=== PATIENT | male | born 1980 | race Caucasian/White ===

== ENCOUNTER → 2016-11-21 | Outpatient (CLI) | payer OTHER ==
--- NOTE | 2016-11-21 14:48 | XR ---
AP pelvis HISTORY: Pelvic pain Single frontal view of the pelvis correlated to prior exam 27 August 2016 There is no interval change IMPRESSION: Stable postoperative changes.
== END | disposition home or self-care (01) ==
LOC: RADXRMAIN 12:18
PROVIDERS: ATTEND Neurological Surgery
DX: R10.2 Pelvic and perineal pain (principal); Z98.890 Other specified postprocedural states
CPT/HCPCS: 72170

== ENCOUNTER → 2016-12-11 | Outpatient (CLI) | payer OTHER ==
--- NOTE | 2016-12-11 15:06 | XR ---
Lumbar spine flexion and extension views HISTORY: Status post lumbar fusion. Correlation to previous exam 01 Mar 2015 Patient shows posterior lumbar fusion at L4-5 S1. Intervertebral spacing material is present. Alignme nt is stable. 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 Minimal retrolisthes is suspected at L3-4, alignment is stable as compared to prior exam. Triangular metallic devices pres ent along the anterior aspect of the sacrum on the lateral view not seen on previous exam. IMPRESSION: Minimal slip is suspected at L3-4. Degenerative disc disease and postop change.
== END | disposition home or self-care (01) ==
LOC: RADXRMAIN 14:18
PROVIDERS: ATTEND Neurological Surgery
DX: M51.36 Other intervertebral disc degeneration, lumbar region (principal); Z98.890 Other specified postprocedural states
CPT/HCPCS: 72100

== ENCOUNTER → 2017-01-13 | Outpatient (CLI) | payer OTHER ==
--- NOTE | 2017-01-13 21:45 | MR ---
EXAMINATION TYPE: MR lumbar spine wo con DATE OF EXAM: 01/13/2017 9:36 PM COMPARISON: MRI lumbar spine August 16, 2016. Lumbar spine x-ray December 11, 2016. HISTORY: Deg Of Lumbar per order, prior surgery 2010 and 2015 with pain since 2008 per patient. TECHNIQUE: Multiplanar, multisequence imaging of the lumbar spine is performed without IV contrast. FINDINGS: Sagittal images of the lumbar spine show vertebral body heights to appear satisfactory. The re is prominent lumbar lordosis centered at L3-L4 disc space level redemonstrated. Artifact from post erior fusion hardware L4-S1 levels bilaterally is redemonstrated. There is new artifact from anterior fusion hardware in the upper sacrum now noted. There is artifact from disc material L4-L5 and L5-S1 levels redemonstrated. There is disc desiccation with moderate disc space narrowing posteriorly L3-L4 level redemonstrated . The conus medullaris is normal in position and signal ending at T12-L1 disc s pace level. The bone marrow signal intensity is within normal limits. Axial images redemonstrates the T12-L1, L1-L2, and L2-L3 levels all to remain within normal limits. Axial images at L3-L4 level show artifact from posterior fusion hardware. There is mild to moderate b road-based posterior disc protrusion mildly effacing anterior thecal sac with mild to moderate bilate ral anterior inferior neural foraminal narrowing redemonstrated. No significant change from prior will dy is seen. Axial images at L4-L5 and L5-S1 levels show artifact from posterior fusion hardware and disc material . There are bilateral laminectomy defect with spinous process resection. Spinal canal is preserved an d bilateral neural foramina are patent. No significant change from prior study is seen. IMPRESSION: Postsurgical changes L4-S1 level with satisfactory and stable alignment. No significant i nterval change. There is stable degenerative change at L3-L4 level at the peak of curvature noted.
== END ==
LOC: RADMRIMAIN 20:34
PROVIDERS: ATTEND Neurological Surgery
DX: M51.36 Other intervertebral disc degeneration, lumbar region (principal)
CPT/HCPCS: 72148

== ENCOUNTER → 2017-01-13 | Outpatient (CLI) | payer OTHER ==
--- NOTE | 2017-01-13 22:29 | MR ---
EXAMINATION TYPE: MR hip RT wo con DATE OF EXAM: 01/13/2017 9:51 PM COMPARISON: Prior pelvic x-ray November 21, 2016. HISTORY: PAIN IN RT HIP Standard multiplanar, multisequence MRI departmental protocol Multiplanar, multisequence images of the pelvis focusing on right hip were acquired. FINDINGS: Bone marrow signal intensity in the pelvis including right hip is felt within normal limits . Pubic symphysis is maintained. Sacroiliac joints show artifact from fusion material on the right. E valuation at this level is suboptimal due to artifact. There are small symmetric hip joint effusions. No significant spurring is seen. No suspicious asymmet martina joint space loss is noted. No suspicious fluid signal seen at level of greater or lesser trochanters on the right. Femoral head shape is maintained. Muscle bulk in the right thigh is felt within normal limits and symmetric to opp osite left side. Labrum appears grossly intact given limitation of nonarthrogram study. Visualized bowel shows no suspicious dilatation. Bladder is felt within normal limits. Prostate gland and seminal vesicles are grossly unremarkable. No concerning pelvic fluid collection is seen. No durga picious pelvic adenopathy is noted. No suspicious bowel or fat-containing inguinal hernias are seen. IMPRESSION: No suspicious finding is seen to account for patient's symptoms of right-sided hip pain.
== END ==
LOC: RADMRIMAIN 20:26
PROVIDERS: ATTEND Internal Medicine
DX: M25.551 Pain in right hip (principal)

== ENCOUNTER → 2017-03-10 | Outpatient (CLI) | payer OTHER ==
[2017-03-10 13:10] LABS: Basophils # (A) 0.1 k/uL (0-0.2); Basophils % (A) 1 %; CH 31.4; CHCM 33.1; Eosinophils # (A) 0.1 k/uL (0-0.7); Eosinophils % (A) 1 %; HCT 41.2 % (39.0-53.0); HDW 2.19; HGB 13.3 gm/dL (13.0-17.5); Luc # (Auto) 0.16; Luc % (Auto) 2; Lymphocytes # (A) 2.1 k/uL (1.0-4.8); Lymphocytes % (A) 28 %; MCH 30.7 pg (25.0-35.0); MCHC 32.2 g/dL (31.0-37.0); MCV 95.3 fL (80.0-100.0); Mean Platelet Volume 6.4; Monocytes # (A) 0.4 k/uL (0-1.0); Monocytes % (A) 5 %; Neutrophils # (A) 4.6 k/uL (1.3-7.7); Neutrophils % (A) 63 %; RBC 4.33 m/uL (4.30-5.90); RDW 13.3 % (11.5-15.5); WBC 7.3 k/uL (3.8-10.6); WBC (Perox) 7.54
[2017-03-10 13:12] LABS: INR 1.1 (<1.1); Partial Thromboplastin Time 25.3 sec (22.0-30.0); Prothrombin Time 11.5 sec (9.0-12.0)
[2017-03-10 13:21] LABS: ALT 30 U/L (21-72); AST 28 U/L (17-59); Alkaline Phosphatase 63 U/L (38-126); Anion Gap 9 mmol/L; Blood Urea Nitrogen 15 mg/dL (9-20); Calcium 9.7 mg/dL (8.4-10.2); Carbon Dioxide 29 mmol/L (22-30); Chloride 102 mmol/L (98-107); Glucose 76 mg/dL (74-99); Non-African American GFR(MDRD) >60 (>60 ml/min/1.73 sqM); Potassium 4.2 mmol/L (3.5-5.1); Sodium 140 mmol/L (137-145); Total Bilirubin 0.5 mg/dL (0.2-1.3); Total Protein 7.3 g/dL (6.3-8.2)
[2017-03-10 16:32] LABS: Appearance,Urine Clear (Clear); Bilirubin,Urine Negative (Negative); Glucose,Urine (UA) Negative (Negative); Ketones,Urine Negative (Negative); Leukocyte Esterase,Urine Negative (Negative); Nitrite,Urine Negative (Negative); PH, Urine 5.5 (5.0-8.0); Protein,Urine Negative (Negative); Specific Gravity,Urine 1.005 (1.001-1.035); UA Billing (MACRO vs. MICRO) CHEM; Urobilinogen,Urine <2.0 mg/dL (<2.0)
== END | disposition home or self-care (01) ==
LOC: LABWHC1 12:44
PROVIDERS: ATTEND Neurological Surgery
DX: M51.36 Other intervertebral disc degeneration, lumbar region (principal)
CPT/HCPCS: 36415; 80053; 81003; 85025; 85610; 85730

== ENCOUNTER → 2017-04-17 | Outpatient (CLI) | payer OTHER ==
--- NOTE | 2017-04-17 10:53 | XR ---
EXAMINATION TYPE: XR sacrum coccyx DATE OF EXAM: 04/17/2017 COMPARISON: NONE HISTORY: Pain Three views are submitted. Sacrum is intact. SI joints are symmetric. Coccyx appears to be intact. Visualized pelvic structures intact. Postsurgical change at the lumbosacral junction noted. Surgic al change involving the sacrum seen. IMPRESSION: 1. Postsurgical change appears in near-anatomic alignment..
--- NOTE | 2017-04-17 10:55 | XR ---
EXAM TYPE: LUMBAR SPINE X RAY SERIES COMPARISON: 12/11/2016 HISTORY: Postop TECHNIQUE: 3 views are submitted. FINDINGS: Alignment is anatomic. Postsurgical change noted. When the transpedicular screws at the lowest lumbar segment and sacral level has been removed. Alignment remains stable. Alignment anatomic. No signific ant spondylolisthesis. IMPRESSION: 1. Postsurgical changes.
== END | disposition home or self-care (01) ==
LOC: RADXRMAIN 10:17
PROVIDERS: ATTEND Neurological Surgery
DX: Z47.89 Encounter for other orthopedic aftercare (principal); Z98.1 Arthrodesis status
CPT/HCPCS: 72100; 72220

== ENCOUNTER → 2017-06-25 | Outpatient (CLI) | payer OTHER ==
--- NOTE | 2017-06-25 12:20 | XR ---
EXAM TYPE: LUMBAR SPINE X RAY SERIES COMPARISON: 04/17/2017 HISTORY: Postop TECHNIQUE: 2 views are submitted. FINDINGS: Alignment is anatomic. Postsurgical change noted. When the transpedicular screws at the lowest lumbar segment and sacral level has been removed. Alignment remains stable. Alignment anatomic. No signific ant spondylolisthesis. IMPRESSION: 1. Postsurgical changes.
== END | disposition home or self-care (01) ==
LOC: RADXRMAIN 11:44
PROVIDERS: ATTEND Neurological Surgery
DX: M51.36 Other intervertebral disc degeneration, lumbar region (principal); Z98.890 Other specified postprocedural states
CPT/HCPCS: 72100

== ENCOUNTER → 2017-07-07 | Outpatient (CLI) | payer OTHER ==
[2017-07-07 12:35] LABS: CH 29.8; CHCM 32.2; HCT 38.6 % (39.0-53.0); HGB 13.3 gm/dL (13.0-17.5); MCHC 34.4 g/dL (31.0-37.0); MCV 93.1 fL (80.0-100.0); Mean Platelet Volume 6.9; RBC 4.14 m/uL (4.30-5.90); RDW 14.7 % (11.5-15.5); WBC 9.4 k/uL (3.8-10.6)
[2017-07-07 12:52] LABS: ALT 33 U/L (21-72); AST 22 U/L (17-59); Alkaline Phosphatase 66 U/L (38-126); Amylase 52 U/L (30-110); Anion Gap 9 mmol/L; Blood Urea Nitrogen 13 mg/dL (9-20); Calcium 9.8 mg/dL (8.4-10.2); Carbon Dioxide 27 mmol/L (22-30); Chloride 105 mmol/L (98-107); Glucose 90 mg/dL (74-99); Non-African American GFR(MDRD) >60 (>60 ml/min/1.73 sqM); Potassium 4.6 mmol/L (3.5-5.1); Sodium 141 mmol/L (137-145); Total Bilirubin 0.2 mg/dL (0.2-1.3); Total Protein 7.1 g/dL (6.3-8.2)
[2017-07-07 13:21] LABS: Hepatitis B Surface Ag Index 0.05
--- NOTE | 2017-07-07 13:21 | US ---
EXAMINATION TYPE: US abdomen complete DATE OF EXAM: 07/07/2017 COMPARISON: NONE CLINICAL HISTORY: R10.11 RUQ PAIN. Right lateral abdomen pain, multiple back surgeries,35 lb weight l oss in past 4 months EXAM MEASUREMENTS: Liver Length: 16.0 cm Gallbladder Wall: 0.2 cm CBD: 0.3 cm Spleen: 9.7 cm Right Kidney: 10.7 x 5.4 x 4.1 cm Left Kidney: 10.8 x 5.1 x 5.5 cm Pancreas: Obscured by bowel gas Liver: no masses seen Gallbladder: wnl Evidence for sonographic Zuniga's sign: patient c/o right lateral abdomen pain at level of liver/r t. kidney. Negative sonographic Zuniga sign. CBD: wnl Spleen: wnl Right Kidney: wnl Left Kidney: wnl Upper IVC: wnl Abd Aorta: wnl IMPRESSION: No sonographic evidence of cholelithiasis or cholecystitis.
[2017-07-07 13:28] LABS: Hepatitis B Core IgM Index 0.03
[2017-07-07 13:38] LABS: Hepatitis C Virus IgG Ab Negative (Negative); Hepatitis C Virus IgG Index 0.01
== END | disposition home or self-care (01) ==
LOC: LABWHC1 11:08
PROVIDERS: ATTEND Internal Medicine
DX: R10.11 Right upper quadrant pain (principal)
CPT/HCPCS: 36415; 76700; 80053; 80074; 82150; 84439; 84443; 85027

== ENCOUNTER → 2017-09-09 | Outpatient (CLI) | payer OTHER ==
[2017-09-09 11:21] LABS: CH 30.8; CHCM 32.5; HDW 2.19; MCH 30.2 pg (25.0-35.0); MCHC 31.6 g/dL (31.0-37.0); MCV 95.4 fL (80.0-100.0); Mean Platelet Volume 6.5; RDW 13.8 % (11.5-15.5); WBC 8.3 k/uL (3.8-10.6)
[2017-09-09 11:29] LABS: Anion Gap 10 mmol/L; Blood Urea Nitrogen 16 mg/dL (9-20); Calcium 10.1 mg/dL (8.4-10.2); Carbon Dioxide 27 mmol/L (22-30); Chloride 105 mmol/L (98-107); Glucose 94 mg/dL (74-99); Non-African American GFR(MDRD) >60 (>60 ml/min/1.73 sqM); Potassium 4.3 mmol/L (3.5-5.1); Sodium 142 mmol/L (137-145)
[2017-09-09 15:18] LABS: Iron Saturation 32.66 (15.00-50.00)
== END | disposition home or self-care (01) ==
LOC: LABWHC1 10:57
PROVIDERS: ATTEND Physician Assistant
DX: D50.9 Iron deficiency anemia, unspecified (principal); G89.4 Chronic pain syndrome
CPT/HCPCS: 36415; 80048; 82607; 82728; 82746; 83540; 83550; 85027

== ENCOUNTER → 2017-11-21 | Outpatient (CLI) | payer OTHER ==
--- NOTE | 2017-11-21 23:15 | MR ---
EXAMINATION TYPE: MR thoracic spine wo con DATE OF EXAM: 11/21/2017 COMPARISON: NONE HISTORY: Postlaminectomy syndrome per order, imaging needed before implanting neurostimulator per sweta gaines. History of multiple surgeries low back per patient. TECHNIQUE: Multiplanar, multisequence imaging of thoracic spine is performed without contrast FINDINGS: Coronal images show slight levoconvex scoliotic curvature centered in the upper thoracic sp ine. Spinal cord shows normal course, caliber, and signal as it courses the thoracic spine. Vertebr al body heights are satisfactory. Disc space heights are maintained. There are small posterior disc herniations mildly effaces the anterior thecal sac at T6-T7 and to lesser degree T7-T8 levels on sagi ttal images. Bone marrow signal intensity is preserved. No significant spurring is seen. Review of the axial images confirms right paracentral disc protrusion effacing anterolateral thecal s ac up to ventral surface of spinal cord at T6 -T7 level on axial image 3 series 801. No additional gutierrez spicious disc herniations are identified. Visualized lungs are clear. Visualized upper abdomen is unr emarkable. IMPRESSION: Slight scoliotic curvature upper thoracic spine with disc herniation T6-T7 level and smal ler disc herniation T7-T8 level noted.
== END | disposition home or self-care (01) ==
LOC: RADMRIMAIN 19:12
PROVIDERS: ATTEND Anesthesiology
DX: M51.24 Other intervertebral disc displacement, thoracic region (principal); M41.84 Other forms of scoliosis, thoracic region
CPT/HCPCS: 72146

== ENCOUNTER → 2017-12-08 | Outpatient (CLI) | payer OTHER ==
[2017-12-08 11:51] LABS: Appearance,Urine Clear (Clear); Bilirubin,Urine Negative (Negative); Blood,Urine Negative (Negative); Color,Urine Yellow; Glucose,Urine (UA) Negative (Negative); Ketones,Urine Negative (Negative); Leukocyte Esterase,Urine Negative (Negative); Nitrite,Urine Negative (Negative); PH, Urine 6.5 (5.0-8.0); Protein,Urine Negative (Negative); Specific Gravity,Urine 1.006 (1.001-1.035); Urobilinogen,Urine <2.0 mg/dL (<2.0)
[2017-12-08 12:01] LABS: Basophils % (A) 0 %; Eosinophils % (A) 0 %; HCT 42.3 % (39.0-53.0); HGB 13.7 gm/dL (13.0-17.5); Lymphocytes # (A) 1.9 k/uL (1.0-4.8); Lymphocytes % (A) 19 %; MCH 30.2 pg (25.0-35.0); MCHC 32.4 g/dL (31.0-37.0); MCV 93.3 fL (80.0-100.0); Mean Platelet Volume 6.6; Monocytes # (A) 0.5 k/uL (0-1.0); Monocytes % (A) 5 %; Neutrophils # (A) 7.4 k/uL (1.3-7.7); Neutrophils % (A) 74 %; Platelet Count 376 k/uL (150-450); RBC 4.53 m/uL (4.30-5.90); WBC 9.9 k/uL (3.8-10.6)
[2017-12-08 12:05] LABS: ALT 29 U/L (21-72); AST 26 U/L (17-59); Albumin 4.6 g/dL (3.5-5.0); Alkaline Phosphatase 61 U/L (38-126); Anion Gap 9 mmol/L; Blood Urea Nitrogen 13 mg/dL (9-20); Carbon Dioxide 33 mmol/L (22-30); Chloride 100 mmol/L (98-107); Glucose 119 mg/dL (74-99); Potassium 4.5 mmol/L (3.5-5.1); Sodium 142 mmol/L (137-145); Total Bilirubin 0.2 mg/dL (0.2-1.3)
[2017-12-08 12:06] LABS: INR 1.1 (<1.2); Partial Thromboplastin Time 23.7 sec (22.0-30.0); Prothrombin Time 10.6 sec (9.0-12.0)
== END | disposition home or self-care (01) ==
LOC: LABWHC1 11:20
PROVIDERS: ATTEND Neurological Surgery
DX: Z01.818 Encounter for other preprocedural examination (principal); M96.1 Postlaminectomy syndrome, not elsewhere classified
CPT/HCPCS: 36415; 80053; 81003; 85025; 85610; 85730

== ENCOUNTER → 2018-03-21 | Outpatient (CLI) | payer OTHER ==
--- NOTE | 2018-03-21 21:47 | CT ---
EXAMINATION TYPE: CT lumbar spine wo con DATE OF EXAM: 03/21/2018 9:52 AM COMPARISON: 05/26/2016 CT bar spine and MRI lumbar spine dated 08/19/2017 HISTORY: Low back pain with Left leg pain CT DLP: 1102 mGycm Automated exposure control for dose reduction was used. TECHNIQUE: Unenhanced CT of the lumbar spine was performed. Bone and soft tissue window settings are submitted as well as coronal and sagittal reconstructions. FINDINGS: There is surgical fixation with pedicular screws and fixation rods of the L3 and L4 vertebr al bodies with intervertebral disc cages seen at L3-L4, L4-L5 and L5-S1. Posterior element resection is seen at L4 and L5. The lumbar vertebral bodies maintain normal vertebral body height and alignment . Hardware is intact without evidence of fracture. Right sacroiliac joint fixation is also seen with intrathecal nerve stimulator partially visualized. Surgical clips are seen around the cecum likely fr om prior appendectomy. Minimal calcific atheromatous changes are seen of the abdominal aorta. L1-L2: Normal disc space height. No disc herniation protrusion or central stenosis. No facet joint arthropathy. No evidence for foraminal encroachment. L2-L3: There is a small broad-based disc bulge creating mild bilateral neural foraminal narrowing. No spinal canal stenosis. L3-L4: Intervertebral disc age is evident as well as facet arthropathy. There appears to be slight so ft tissue density that is right eccentric within the neural foramen on series 3 image 56 and on sagit zohra series 6 image 30. This could relate to epidural fibrosis and enhanced MRI is recommended. Right neuroforamen is partially obscured by spray artifact. There is mild left neural foraminal narrowing f rom facet arthropathy. No significant spinal canal stenosis. L4-L5: Posterior element resection has been performed. No spinal canal stenosis. Small residual broad -based disc bulge is seen in combination with intervertebral disc spacer creating mild bilateral neur al foraminal narrowing. L5-S1: Intervertebral disc age is also again seen. Posterior element resection is noted with no spina l canal stenosis. Facet arthropathy is present creating mild right neural foraminal narrowing. Left n euroforamen is patent. IMPRESSION: 1. Eccentric soft tissue density along the right neural foramen at L3-L4 could represent epidural fib rosis and MRI with and without contrast is recommended for further evaluation. 2. No evidence of postoperative malalignment of the lumbar spine. No evidence of hardware fracture. M ild degenerative disc disease at L2-L3, a level above the surgical fixation. Mild degenerative disc d isease with variable neural foraminal narrowing as described above.
== END | disposition home or self-care (01) ==
LOC: RADCTMAIN 09:38
PROVIDERS: ATTEND Neurological Surgery
DX: Z47.89 Encounter for other orthopedic aftercare (principal); M99.73 Connective tissue and disc stenosis of intervertebral foramina of lumbar region; M51.36 Other intervertebral disc degeneration, lumbar region; R93.7 Abnormal findings on diagnostic imaging of other parts of musculoskeletal system; Z98.890 Other specified postprocedural states
CPT/HCPCS: 72131

== ENCOUNTER → 2018-05-06 | Outpatient (CLI) | payer OTHER ==
--- NOTE | 2018-05-06 10:17 | XR ---
Lumbar spine HISTORY: Postop, Z98.890 3 views of the lumbar spine correlated to prior exam 06/25/2017 There is been interval placement of a device over the sacral region with leads coursing into the thor acic cord region. Postop changes are stable status post lumbar posterior fusion, laminectomies, inter vertebral spacing blocks placements. Postop changes also noted at the sacroiliac joint on the right. There are degenerative disc changes. Vertebral body height and alignment are stable, bone mineralizat ion is maintained. IMPRESSION: Neurosurgical follow-up. Additional findings above.
== END | disposition home or self-care (01) ==
LOC: RADXRMAIN 08:04
PROVIDERS: ATTEND Neurological Surgery
DX: Z09 Encounter for follow-up examination after completed treatment for conditions other than malignant neoplasm (principal); Z98.890 Other specified postprocedural states
CPT/HCPCS: 72100

== ENCOUNTER → 2018-05-07 | Outpatient (CLI) | payer OTHER ==
--- NOTE | 2018-05-08 10:12 | XR ---
Thoracic spine HISTORY: Back pain 3 views of the thoracic spine Correlation MR thoracic spine 11/21/2017 There is a thoracic cord stimulator present with the distal tip at the level of the T8-T9 disc space level. Thoracic vertebral bodies show preserved height, alignment, and bone mineralization. Mild spon dylosis is present at multiple levels. Mild loss of disc height at the intervertebral levels in the m id thoracic spine level. IMPRESSION: Degenerative disc disease. Indwelling thoracic cord stimulator.
== END | disposition home or self-care (01) ==
LOC: RAD 18:01
PROVIDERS: ATTEND Neurological Surgery
DX: M51.34 Other intervertebral disc degeneration, thoracic region (principal); Z96.89 Presence of other specified functional implants
CPT/HCPCS: 72070

== ENCOUNTER → 2018-06-26 | Outpatient (CLI) | payer OTHER ==
--- NOTE | 2018-06-27 13:55 | NM ---
EXAMINATION TYPE: NM DatScan Brain SPECT DATE OF EXAM: 06/26/2018 COMPARISON: NONE HISTORY: 37-year-old male with tremor TECHNIQUE: 10 drops of Lugol's solution was administered 1 hour prior to injection as a thyroid bloc kelly agent. After the administration of 4.48 mCi I-123 Ioflupane DaTscan. Images obtained 3 hours p ost injection. SPECT images of the brain were acquired with axial and coronal reconstructions. FINDINGS: There is symmetric striatal activity without increased background. IMPRESSION: Normal appearance against the diagnosis of idiopathic Parkinson's disease or a parkinsonian syndrome. This normal appearance can be seen and healthy individuals and also patient's with essential tremor, drug-induced parkinsonism, and vascular pseudoparkinsonism.
== END | disposition home or self-care (01) ==
LOC: RADNMMAIN 10:57
PROVIDERS: ATTEND Psychiatry & Neurology Neurology
DX: G25.0 Essential tremor (principal)
CPT/HCPCS: 78607; A9584

== ENCOUNTER 2018-07-14 10:22 | Emergency (ER) | payer OTHER ==
[2018-07-14 10:38] VITALS: RESP 18; TEMP 98.4
--- NOTE | 2018-07-14 11:11 | ED ---
Headache HPI - General Chief Complaint: Headache Stated Complaint: visual disturbance, headache intermitent Time Seen by Provider: 07/14/18 10:49 Mode of arrival: ambulatory Limitations: no limitations - History of Present Illness Initial Comments: 37-year-old male patient presents to the emergency department today sent by his primary care physician for computed tomography scan. Patient states that he has been having sharp stabbing pains to the right restoration that have worsened in intensity over the last couple of weeks. Patient states he is also developed blurred vision to the right eye. Patient states that he did see Dr. Fernández english and reading instructor who stated that everything looked normal with his eye. Patient states that the pains are intermittent and only last a few seconds and they come on. States that he has been evaluated by his primary care physician did have labs done. Stated that when the pain returned today his primary care physician wanted him to have computed tomography scan performed. Patient denies any current headache. States that the pain does, he does have some light sensitivity but denies any sensitivity to sound. Denies any nausea, vomiting, weakness, numbness, or tingling. Patient denies any recent rash, fever , chills, shortness breath, chest pain, abdominal pain, nausea, vomiting, diarrhea, constipation, back pain, dizziness, hematuria, dysuria, urinary urgency, urinary frequency, or any other complaints. - Related Data Previous Rx's Medication Instructions Recorded Amoxicillin/Potassium Clav 1 tab PO Q12HR 7 Days #14 tab 10/18/17 [Augmentin 875-125 Tablet] Ibuprofen [Motrin] 400 mg PO Q6HR PRN #20 tab 10/18/17 Sulfacetamide Sodium 1 drop RIGHT EYE TID 7 Days #1 10/18/17 [Sulfacetamide Sod 10% Ophth Soln] drops Allergies Allergy/AdvReac Type Severity Reaction Status Date / Time No Known Allergies Allergy Verified 10/16/17 18:31 Review of Systems ROS Statement: Those systems with pertinent positive or pertinent negative responses have been documented in the HPI. ROS Other: All systems not noted in ROS Statement are negative. Past Medical History Additional Past Medical History / Comment(s): DDD, DJD, chronic back pain, blood born strep, staph infection after back surgery-Non MRSA History of Any Multi-Drug Resistant Organisms: None Reported Past Surgical History: Appendectomy, Back Surgery, Orthopedic Surgery Additional Past Surgical History / Comment(s): 3-lower lumbar fusion, I/s of incision in back,spinal cord stimulator Past Anesthesia/Blood Transfusion Reactions: No Reported Reaction Past Psychological History: Anxiety, Depression Smoking Status: Current some day smoker Past Alcohol Use History: Occasional Past Drug Use History: None Reported - Past Family History Mother Family Medical History: Congestive Heart Failure (CHF) Additional Family Medical History / Comment(s): hip problems. Father History Unknown: Yes General Exam Limitations: no limitations General appearance: alert, in no apparent distress, other (This is a well- developed, well-nourished adult male patient in no acute distress. Vital signs upon presentation are temperature 98.4F, pulse 85, respirations 18, blood pressure 144/72, pulse ox 98% on room air.) Head exam: Present: other (No temporal tenderness. No indurated vessels to palpation of the temporal region.) Eye exam: Present: normal appearance, PERRL, EOMI. Absent: scleral icterus, conjunctival injection, nystagmus, periorbital swelling ENT exam: Present: normal exam, normal oropharynx, mucous membranes moist Respiratory exam: Present: normal lung sounds bilaterally. Absent: respiratory distress, wheezes, rales, rhonchi, stridor Cardiovascular Exam: Present: regular rate, normal rhythm, normal heart sounds. Absent: systolic murmur, diastolic murmur, rubs, gallop, clicks GI/Abdominal exam: Present: soft, normal bowel sounds. Absent: distended, tenderness, guarding, rebound, rigid Neurological exam: Present: alert, oriented X3, CN II-XII intact, other ( Strength in all 4 extremities is 5/5.) Psychiatric exam: Present: normal affect, normal mood Skin exam: Present: warm, dry, intact, normal color. Absent: rash Course Vital Signs 07/14/18 07/14/18 10:33 12:37 Temperature 98.4 F 98.4 F Pulse Rate 85 71 Respiratory 18 18 Rate Blood Pressure 144/72 125/71 O2 Sat by Pulse 98 98 Oximetry Medical Decision Making - Medical Decision Making 37-year-old male patient percents to the emergency department today for evaluation of intermittent sharp pains to the right temporal region as well as acute visual change in the form of blurred vision to the right eye. Patient was sent by his primary care physician to have a computed tomography scan of his brain. Physical examination was unremarkable. Patient had no temporal tenderness, no indurated vessels were noted upon palpation. Patient is neurologically intact. Did perform computed tomography scan of the brain, showed no acute abnormalities. Did discuss findings and results with the patient. Patient has been evaluated by ophthalmology and they found no acute abnormalities. I did discuss possible follow-up with neurology, is instructed to see his primary care physician to discuss referral. Return parameters were discussed in detail. He verbalizes understanding and agrees with this plan. - Radiology Data Radiology results: report reviewed, image reviewed CT brain without contrast was performed. There is no evidence of acute intracranial hemorrhage, acute ischemic changes, mass, mass effect, or extra- axial fluid collection. There is no effacement of the cerebral sulci basal subarachnoid cisterns. There is no hydrocephalus. There is no midline shift. Lauren-white matter distinction is preserved. There is normal congenital variation with persistent cavum septum pellucidum.. Nasal sinuses and mastoid air cells well-pneumatized. Orbits and globes are intact. Impression by Dr. Fajardo shows no acute intracranial abnormality. Disposition Clinical Impression: Headache, Blurred vision Disposition: HOME SELF-CARE Condition: Good Instructions: Acute Headache (ED), Blurred Vision (ED) Additional Instructions: Follow up with primary care physician for further evaluation. Discuss possible referral to neurology. Return to the emergency department for any new, worsening , or concerning symptoms. Is patient prescribed a controlled substance at d/c from ED?: No Referrals: Herrera Calderon MD [Primary Care Provider] - 1-2 days Shaye Thornton MD [STAFF PHYSICIAN] - 1-2 days Time of Disposition: 12:51
--- NOTE | 2018-07-14 12:06 | CT ---
EXAMINATION TYPE: CT brain wo con DATE OF EXAM: 07/14/2018 COMPARISON: None HISTORY: 37-year-old male MARCOS, visual changes TECHNIQUE: Examination was done in axial plane without intravenous contrast. Coronal and sagittal r econstructions performed. CT DLP: 961 mGycm Automated exposure control for dose reduction was used. FINDINGS: There is no evidence of acute intracranial hemorrhage, acute ischemic changes, mass, mass-effect, or extra-axial fluid collection. There is no effacement of cerebral sulci or basal subarachnoid cister ns. There is no hydrocephalus. There is no midline shift. Joyce-white matter distinction is preserv ed. There is normal congenital variation with persistent cavum septum pellucidum. Paranasal sinuses and mastoid air cells well pneumatized. Orbits and globes are intact. IMPRESSION: No acute intracranial abnormality seen.
[2018-07-14 12:38] VITALS: BP 125/71; PULSE 71
== END 2018-07-14 12:59 | disposition home or self-care (01) ==
LOC: EC 10:22
DX: R51 Headache (principal); H53.8 Other visual disturbances; F17.200 Nicotine dependence, unspecified, uncomplicated
CPT/HCPCS: 70450; 99283

== ENCOUNTER → 2018-08-25 | Outpatient (CLI) | payer OTHER ==
[2018-08-27 14:01] LABS: IgG - CSF 3.7 mg/dL (0.0 - 3.4); IgG Synthesis Rate 0.58 mg/day (0.00 - 3.00); IgG/Albumin Index (CSF) 0.53 (0.00 - 0.77); Immunoglobulin G 696 mg/dL (700 - 1600)
== END | disposition home or self-care (01) ==
LOC: LABWHC1 09:50
PROVIDERS: ATTEND Nurse Practitioner Acute Care
DX: R90.82 White matter disease, unspecified (principal)
CPT/HCPCS: 36415; 82040; 82042; 82784; 83916

== ENCOUNTER 2018-11-03 18:12 | Emergency (ER) | payer OTHER ==
[2018-11-03 18:32] VITALS: BP 133/89; PULSE 74; RESP 18; TEMP 98.5
--- NOTE | 2018-11-03 19:52 | ED ---
General Adult HPI - General Chief complaint: Abdominal Pain Stated complaint: Abd.pain Time Seen by Provider: 11/03/18 19:37 Source: patient, RN notes reviewed Mode of arrival: ambulatory Limitations: no limitations - History of Present Illness Initial comments: 38-year-old male with a past medical history of chronic back pain presents to the emergency department for a chief complaint of right upper quadrant pain times 4 days. Patient states it is a sharp stabbing pain in the right upper quadrant. Patient states he has also had diarrhea for the past day. He admits to nausea, denies vomiting. States he has not had much of an appetite. States he saw a provider at a clinic who sent him to the emergency department for an ultrasound. Patient has no other complaints at this time including shortness of breath, chest pain, vomiting, headache, or visual changes. - Related Data Home Medications Medication Instructions Recorded Confirmed Cholecalciferol (Vitamin D3) 10,000 unit PO DAILY 11/03/18 11/03/18 [Vitamin D3] Fish Oil/Dha/Epa [Fish Oil 1,200 1,200 mg PO DAILY 11/03/18 11/03/18 mg Fish Oil] Previous Rx's Medication Instructions Recorded Ibuprofen [Motrin] 400 mg PO Q6HR PRN #20 tab 10/18/17 Allergies Allergy/AdvReac Type Severity Reaction Status Date / Time hydromorphone [From Dilaudid] AdvReac Unknown Verified 11/03/18 19:55 Review of Systems ROS Statement: Those systems with pertinent positive or pertinent negative responses have been documented in the HPI. ROS Other: All systems not noted in ROS Statement are negative. Past Medical History Additional Past Medical History / Comment(s): DDD, DJD, chronic back pain, blood born strep, staph infection after back surgery-Non MRSA History of Any Multi-Drug Resistant Organisms: None Reported Past Surgical History: Appendectomy, Back Surgery, Orthopedic Surgery Additional Past Surgical History / Comment(s): 3-lower lumbar fusion, I/s of incision in back,spinal cord stimulator Past Anesthesia/Blood Transfusion Reactions: No Reported Reaction Past Psychological History: Anxiety, Depression Smoking Status: Current some day smoker Past Alcohol Use History: Occasional Past Drug Use History: None Reported - Past Family History Mother Family Medical History: Congestive Heart Failure (CHF) Additional Family Medical History / Comment(s): hip problems. Father History Unknown: Yes General Exam Limitations: no limitations General appearance: alert, in no apparent distress Head exam: Present: atraumatic, normocephalic, normal inspection Eye exam: Present: normal appearance, PERRL, EOMI. Absent: scleral icterus, conjunctival injection, periorbital swelling ENT exam: Present: normal exam, mucous membranes moist Neck exam: Present: normal inspection, full ROM. Absent: tenderness, meningismus, lymphadenopathy Respiratory exam: Present: normal lung sounds bilaterally. Absent: respiratory distress, wheezes, rales, rhonchi, stridor Cardiovascular Exam: Present: regular rate, normal rhythm, normal heart sounds. Absent: systolic murmur, diastolic murmur, rubs, gallop, clicks GI/Abdominal exam: Present: soft, tenderness (tenderness noted in the epigastric area and RUQ), normal bowel sounds. Absent: distended, guarding, rebound, rigid Neurological exam: Present: alert, oriented X3, CN II-XII intact Psychiatric exam: Present: normal affect, normal mood Course Vital Signs 11/03/18 18:30 Temperature 98.5 F Pulse Rate 74 Respiratory 18 Rate Blood Pressure 133/89 O2 Sat by Pulse 100 Oximetry EKG Findings - EKG Comments: EKG Findings:: NSR, vent rate 76, AR int 112, QRS 78 Medical Decision Making - Medical Decision Making CBC and CMP unremarkable. Amylase and lipase within normal limits. Troponin negative although low suspicion for cardiac involvement. Patient did have right upper quadrant tenderness so ultrasound of the gallbladder was ordered which showed no acute process, no stones seen in the gallbladder. Due to tenderness and reevaluation CAT scan was ordered which was negative for any abnormalities. Chest x-ray also negative. There is a 2 mm nodule in the right lower lobe that is possibly the nipple. Discussed this with patient and he would like to follow-up with primary to repeat chest x-ray. States he is feeling well enough to go home at this time. He will return if he has any worsening symptoms. Discussed with Dr Alfaro Patient's discharge paperwork was written on paper as we were during downtime. - Lab Data Result diagrams: 11/03/18 20:15 11/03/18 20:15 Lab Results 11/03/18 11/03/18 11/03/18 Range/Units 20:15 20:15 20:15 WBC 8.2 (3.8-10.6) k/uL RBC 4.67 (4.30-5.90) m/uL Hgb 14.7 (13.0-17.5) gm/dL Hct 43.3 (39.0-53.0) % MCV 92.8 (80.0-100.0) fL MCH 31.4 (25.0-35.0) pg MCHC 33.9 (31.0-37.0) g/dL RDW 13.6 (11.5-15.5) % Plt Count 308 (150-450) k/uL Neutrophils % 64 % Lymphocytes % 25 % Monocytes % 6 % Eosinophils % 2 % Basophils % 1 % Neutrophils # 5.2 (1.3-7.7) k/uL Lymphocytes # 2.1 (1.0-4.8) k/uL Monocytes # 0.5 (0-1.0) k/uL Eosinophils # 0.2 (0-0.7) k/uL Basophils # 0.1 (0-0.2) k/uL Sodium 141 (137-145) mmol/L Potassium 4.6 (3.5-5.1) mmol/L Chloride 105 (98-107) mmol/L Carbon Dioxide 26 (22-30) mmol/L Anion Gap 10 mmol/L BUN 13 (9-20) mg/dL Creatinine 0.94 (0.66-1.25) mg/dL Est GFR (CKD-EPI)AfAm >90 (>60 ml/min/1.73 sqM) Est GFR (CKD-EPI)NonAf >90 (>60 ml/min/1.73 sqM) Glucose 101 H (74-99) mg/dL Calcium 9.9 (8.4-10.2) mg/dL Total Bilirubin 0.4 (0.2-1.3) mg/dL AST 46 (17-59) U/L ALT 61 (21-72) U/L Alkaline Phosphatase 66 (38-126) U/L Troponin I <0.012 (0.000-0.034) ng/mL Total Protein 7.6 (6.3-8.2) g/dL Albumin 5.0 (3.5-5.0) g/dL Amylase 61 (30-110) U/L Lipase 84 (23-300) U/L Urine Color Urine Appearance (Clear) Urine pH (5.0-8.0) Ur Specific [place] (1.001-1.035) Urine Protein (Negative) Urine Glucose (UA) (Negative) Urine Ketones (Negative) Urine Blood (Negative) Urine Nitrite (Negative) Urine Bilirubin (Negative) Urine Urobilinogen (<2.0) mg/dL Ur Leukocyte Esterase (Negative) 11/03/18 Range/Units 20:15 WBC (3.8-10.6) k/uL RBC (4.30-5.90) m/uL Hgb (13.0-17.5) gm/dL Hct (39.0-53.0) % MCV (80.0-100.0) fL MCH (25.0-35.0) pg MCHC (31.0-37.0) g/dL RDW (11.5-15.5) % Plt Count (150-450) k/uL Neutrophils % % Lymphocytes % % Monocytes % % Eosinophils % % Basophils % % Neutrophils # (1.3-7.7) k/uL Lymphocytes # (1.0-4.8) k/uL Monocytes # (0-1.0) k/uL Eosinophils # (0-0.7) k/uL Basophils # (0-0.2) k/uL Sodium (137-145) mmol/L Potassium (3.5-5.1) mmol/L Chloride (98-107) mmol/L Carbon Dioxide (22-30) mmol/L Anion Gap mmol/L BUN (9-20) mg/dL Creatinine (0.66-1.25) mg/dL Est GFR (CKD-EPI)AfAm (>60 ml/min/1.73 sqM) Est GFR (CKD-EPI)NonAf (>60 ml/min/1.73 sqM) Glucose (74-99) mg/dL Calcium (8.4-10.2) mg/dL Total Bilirubin (0.2-1.3) mg/dL AST (17-59) U/L ALT (21-72) U/L Alkaline Phosphatase (38-126) U/L Troponin I (0.000-0.034) ng/mL Total Protein (6.3-8.2) g/dL Albumin (3.5-5.0) g/dL Amylase (30-110) U/L Lipase (23-300) U/L Urine Color Yellow Urine Appearance Clear (Clear) Urine pH 5.5 (5.0-8.0) Ur Specific [place] 1.021 (1.001-1.035) Urine Protein Trace H (Negative) Urine Glucose (UA) Negative (Negative) Urine Ketones Negative (Negative) Urine Blood Negative (Negative) Urine Nitrite Negative (Negative) Urine Bilirubin Negative (Negative) Urine Urobilinogen 2.0 (<2.0) mg/dL Ur Leukocyte Esterase Negative (Negative) Disposition Clinical Impression: Abdominal pain Disposition: HOME SELF-CARE Condition: Good Instructions: Abdominal Pain (ED) Is patient prescribed a controlled substance at d/c from ED?: No Referrals: Herrera Calderon MD [Primary Care Provider] - 1-2 days
[2018-11-03] MEDS ORDERED: KETOROLAC 30 MG/ML 1 ML VIAL IVP STA (19:57)
[2018-11-03] MEDS ORDERED: SODIUM CHLORIDE 0.9% 1,000 ML IV STA (19:57)
[2018-11-03] MEDS ORDERED: ONDANSETRON 4 MG/2 ML VIAL IVP STA (19:57)
[2018-11-03 20:31] LABS: Basophils # (A) 0.1 k/uL (0-0.2); Basophils % (A) 1 %; Eosinophils # (A) 0.2 k/uL (0-0.7); Eosinophils % (A) 2 %; HCT 43.3 % (39.0-53.0); HGB 14.7 gm/dL (13.0-17.5); Lymphocytes # (A) 2.1 k/uL (1.0-4.8); Lymphocytes % (A) 25 %; MCH 31.4 pg (25.0-35.0); MCHC 33.9 g/dL (31.0-37.0); MCV 92.8 fL (80.0-100.0); Mean Platelet Volume 6.7; Monocytes # (A) 0.5 k/uL (0-1.0); Monocytes % (A) 6 %; Neutrophils # (A) 5.2 k/uL (1.3-7.7); Neutrophils % (A) 64 %; Platelet Count 308 k/uL (150-450); RBC 4.67 m/uL (4.30-5.90); RDW 13.6 % (11.5-15.5); WBC 8.2 k/uL (3.8-10.6)
[2018-11-03 20:32] LABS: Appearance,Urine Clear (Clear); Bilirubin,Urine Negative (Negative); Blood,Urine Negative (Negative); Color,Urine Yellow; Glucose,Urine (UA) Negative (Negative); Ketones,Urine Negative (Negative); Leukocyte Esterase,Urine Negative (Negative); Nitrite,Urine Negative (Negative); PH, Urine 5.5 (5.0-8.0); Protein,Urine Trace (Negative); Specific Gravity,Urine 1.021 (1.001-1.035)
[2018-11-03 20:41] LABS: ALT 61 U/L (21-72); AST 46 U/L (17-59); Alkaline Phosphatase 66 U/L (38-126); Amylase 61 U/L (30-110); Anion Gap 10 mmol/L; Blood Urea Nitrogen 13 mg/dL (9-20); Calcium 9.9 mg/dL (8.4-10.2); Carbon Dioxide 26 mmol/L (22-30); Chloride 105 mmol/L (98-107); Glucose 101 mg/dL (74-99); Lipase 84 U/L (23-300); Potassium 4.6 mmol/L (3.5-5.1); Sodium 141 mmol/L (137-145); Total Bilirubin 0.4 mg/dL (0.2-1.3); Total Protein 7.6 g/dL (6.3-8.2)
--- NOTE | 2018-11-03 21:18 | US ---
EXAMINATION TYPE: US abdomen limited DATE OF EXAM: 11/03/2018 COMPARISON: 07/07/2017 CLINICAL HISTORY: Pain. RUQ pain EXAM MEASUREMENTS: Liver Length: 17.6 cm Gallbladder Wall: 0.2 cm CBD: 0.4 cm Right Kidney: 10.2 x 4.5 x 4.6 cm Pancreas: Obscured by bowel gas Liver: wnl Gallbladder: No stones seen Evidence for sonographic Zuniga's sign: No CBD: wnl Right Kidney: wnl IMPRESSION: No acute process.
--- NOTE | 2018-11-03 22:46 | CT ---
EXAMINATION TYPE: CT abdomen pelvis w con DATE OF EXAM: 11/03/2018 COMPARISON: 01/13/2012 HISTORY: Epigastric abdominal pain. CT DLP: 803.2 mGycm Automated exposure control for dose reduction was used. TECHNIQUE: Helical acquisition of images was performed from the lung bases through the pelvis. CONTRAST: Performed without Oral Contrast and with IV Contrast, patient injected with 100ml mL of Isovue 300. FINDINGS: Lung bases are clear. There is no pleural effusion. Heart size is normal. There is no pleural effusio n. Liver spleen pancreas gallbladder appear normal. Bile ducts are not dilated. There is no adrenal mass. Kidneys show satisfactory contrast opacification. There is no hydronephrosi s. There is no retroperitoneal adenopathy. The ureters are not dilated. Bladder distends smoothly. There is no inguinal hernia. There is no free fluid in the pelvis. I see n o intestinal wall thickening. There are no dilated loops. Appendix is not seen. There is no sign of a ppendicitis. There is metal implant posteriorly on the right ilium. The lumbar vertebra have normal alignment. There is no compression fracture. There is posterior fusio n surgery at L3-4. There is neural stimulator in the lower thoracic spine. I see no bony destructive process. The bony pelvis appears intact. There is no sign of free air. IMPRESSION: NEGATIVE CT SCAN OF THE ABDOMEN AND PELVIS. I DO NOT SEE A CAUSE FOR ABDOMINAL PAIN. NO RENAL STONE O BSTRUCTION. NO ADVERSE CHANGE COMPARED TO OLD EXAM.
--- NOTE | 2018-11-04 03:13 | XR ---
EXAM: XR Chest, 2 Views CLINICAL HISTORY: ITS.REASON XR Reason: Pain TECHNIQUE: Frontal and lateral views of the chest. COMPARISON: No relevant prior studies available. FINDINGS: Lungs: No consolidation or mass. Nonspecific 2 mm nodule in the right lower lobe. Pleural space: No effusion. Heart: No cardiomegaly. Mediastinum: Unremarkable. Bones/joints: No acute findings. Spinal cord stimulator is seen. IMPRESSION: No acute findings. 2 mm nodule in the right lower lobe, possibly the nipple. Recommend repeat imaging with nipple markers.
== END 2018-11-04 02:21 | disposition home or self-care (01) ==
LOC: EC 18:12
DX: R10.11 Right upper quadrant pain (principal); R19.7 Diarrhea, unspecified; R11.0 Nausea; F17.200 Nicotine dependence, unspecified, uncomplicated; Z98.1 Arthrodesis status; Z88.5 Allergy status to narcotic agent
CPT/HCPCS: 36415; 93005; 80053; 82150; 83690; 84484; 85025; 81003; 71046; 76705; 74177; 99284; 96374; 96375; 96361; J2405; J1885; Q9967

== ENCOUNTER → 2018-12-21 | Outpatient (CLI) | payer OTHER ==
[2018-12-21 14:43] LABS: Basophils # (A) 0.1 k/uL (0-0.2); Basophils % (A) 1 %; Eosinophils # (A) 0.1 k/uL (0-0.7); Eosinophils % (A) 1 %; HCT 44.8 % (39.0-53.0); HGB 14.9 gm/dL (13.0-17.5); Lymphocytes # (A) 1.7 k/uL (1.0-4.8); Lymphocytes % (A) 23 %; MCHC 33.2 g/dL (31.0-37.0); MCV 96.4 fL (80.0-100.0); Mean Platelet Volume 6.7; Monocytes # (A) 0.4 k/uL (0-1.0); Monocytes % (A) 6 %; Neutrophils # (A) 5.1 k/uL (1.3-7.7); Neutrophils % (A) 68 %; Platelet Count 306 k/uL (150-450); RBC 4.65 m/uL (4.30-5.90); RDW 14.1 % (11.5-15.5); WBC 7.4 k/uL (3.8-10.6)
[2018-12-21 15:49] LABS: Erythrocyte Sedimentation Rate 2 mm/hr (0-15)
[2018-12-21 18:41] LABS: Rheumatoid Factor 8 IU/mL (0-15)
[2018-12-21 18:50] LABS: C Reactive Protein <0.4 mg/dL (0.0-0.8); Uric Acid 6.4 mg/dL (3.7-8.7)
[2018-12-21 20:47] LABS: Cyclic Citrullinated Pep IgG NEGATIVE (NEGATIVE)
[2018-12-22 11:10] LABS: HLA B27 NEGATIVE
== END | disposition home or self-care (01) ==
LOC: LABWHC1 13:29
PROVIDERS: ATTEND Family Medicine
DX: M25.50 Pain in unspecified joint (principal)
CPT/HCPCS: 36415; 84550; 85025; 85652; 86038; 86140; 86200; 86431; 86812

== ENCOUNTER → 2018-12-28 | Outpatient (CLI) | payer OTHER ==
--- NOTE | 2018-12-28 11:41 | CT ---
EXAMINATION TYPE: CT lumbar spine wo/w con DATE OF EXAM: 12/28/2018 COMPARISON: Prior CT 03/21/2018 HISTORY: Degenerative disc disease CT DLP: 2086 mGycm Automated exposure control for dose reduction was used. CONTRAST: CT scan of the lumbar is performed without and with IV Contrast, patient injected with mL of Isovue [address] of the lumbar spine was performed. Bone and soft tissue window settings are submitted as well as coronal and sagittal reconstructions. FINDINGS: Lack of contrast may compromise sensitivity. Postop change status post posterior fusion L3-4 with tra nspedicular screws at these levels again noted, there are intervertebral spacing devices at L3-4, L4- 5 and L5-S1 as on prior. Posterior laminectomies are again noted, vertebral body height is maintained . There is a stimulator in the right gluteal region, lead courses within the subcutaneous tissues to the level of the thoracic spine Lateral extension of endplate disc complex encroaches somewhat on the neural foramen on the right at L5-S1. Soft tissue posterior to the thecal sac at the laminectomy sites is likely due to scar tissue. No maribeth dent spinal stenosis. Foramina are suspected on the right at L3-4. No abnormal enhancement following contrast administration. IMPRESSION: No paraspinal masses are identified. Lumbar CT shows a stable appearance with multiple findings descr ibed above.
== END | disposition home or self-care (01) ==
LOC: RADCTMAIN 09:39
PROVIDERS: ATTEND Psychiatry & Neurology Neurology
DX: M51.36 Other intervertebral disc degeneration, lumbar region (principal); Z98.890 Other specified postprocedural states
CPT/HCPCS: 72133; Q9967

== ENCOUNTER → 2019-05-04 | Outpatient (CLI) | payer OTHER ==
--- NOTE | 2019-05-04 14:44 | CT ---
EXAMINATION TYPE: CT brain wo con DATE OF EXAM: 05/04/2019 COMPARISON: 07/14/2018 HISTORY: 38-year-old male Numbness and dizziness. TECHNIQUE: Examination was done in axial plane without intravenous contrast. Coronal and sagittal r econstructions performed. CT DLP: 1175.7 mGycm Automated exposure control for dose reduction was used. FINDINGS: There is no evidence of acute intracranial hemorrhage, acute ischemic changes, mass, mass-effect, or extra-axial fluid collection. There is no effacement of cerebral sulci or basal subarachnoid cister ns. There is no hydrocephalus. There is no midline shift. Joyce-white matter distinction is preserv ed. Congenital variation with persistent CSP. Partially empty sella. Paranasal sinuses and mastoid air cells are well pneumatized. Orbits and globes are intact. IMPRESSION: No acute intracranial abnormality seen.
== END | disposition home or self-care (01) ==
LOC: RADCTMAIN 13:57
PROVIDERS: ATTEND Physician Assistant
DX: R20.0 Anesthesia of skin (principal)
CPT/HCPCS: 70450

== ENCOUNTER 2019-07-03 18:01 | Emergency (ER) | payer OTHER ==
[2019-07-03 18:17] VITALS: RESP 18; TEMP 98.2
[2019-07-03] MEDS ORDERED: SODIUM CHLORIDE 0.9% 1,000 ML IV STA (18:42)
--- NOTE | 2019-07-03 18:53 | ED ---
General Adult HPI - General Chief complaint: Headache Stated complaint: hypertension, headache when sitting/laying down Time Seen by Provider: 07/03/19 18:26 Source: patient Mode of arrival: ambulatory Limitations: no limitations - History of Present Illness Initial comments: 38-year-old male patient presents to the emergency department today with multip le complaints. Patient states he is feeling unwell today. States he is having a right-sided headache. Reports feeling dizziness like his body is moving even though he is still. States he feels nauseous and is having intermittent blurred vision. States that he has been having some sharp chest pain to the left chest just below his left breast. States he does feel short of breath with this. He is reporting racing heart. States his heart rate was 140 earlier and his blood pressure was elevated to 150 systolic over 108 diastolic. Patient denies history of hypertension. States he has had episodes of racing heart in the past that was related to a medication he was taking, he has since discontinued this medication. Patient denies any recent rash, fever, chills, abdominal pain, diarrhea, constipation, back pain, numbness, tingling, hematuria, dysuria, urinary urgency, urinary frequency, or any other complaints. - Related Data Home Medications Medication Instructions Recorded Confirmed Cholecalciferol (Vitamin D3) 10,000 unit PO DAILY 11/03/18 11/03/18 [Vitamin D3] Fish Oil/Dha/Epa [Fish Oil 1,200 1,200 mg PO DAILY 11/03/18 11/03/18 mg Fish Oil] Previous Rx's Medication Instructions Recorded Ibuprofen [Motrin] 400 mg PO Q6HR PRN #20 tab 10/18/17 Allergies Allergy/AdvReac Type Severity Reaction Status Date / Time hydromorphone [From Dilaudid] AdvReac Unknown Verified 11/03/18 19:55 Review of Systems ROS Statement: Those systems with pertinent positive or pertinent negative responses have been documented in the HPI. ROS Other: All systems not noted in ROS Statement are negative. Past Medical History Past Medical History: Hypertension Additional Past Medical History / Comment(s): DDD, DJD, chronic back pain, blood born strep, staph infection after back surgery-Non MRSA History of Any Multi-Drug Resistant Organisms: None Reported Past Surgical History: Appendectomy, Back Surgery, Orthopedic Surgery Additional Past Surgical History / Comment(s): 3-lower lumbar fusion, I/s of incision in back,spinal cord stimulator Past Anesthesia/Blood Transfusion Reactions: No Reported Reaction Past Psychological History: Anxiety, Depression Smoking Status: Current every day smoker Past Alcohol Use History: Occasional Past Drug Use History: None Reported - Past Family History Mother Family Medical History: Congestive Heart Failure (CHF) Additional Family Medical History / Comment(s): hip problems. Father History Unknown: Yes General Exam Limitations: no limitations General appearance: alert, in no apparent distress, other (This is a well-developed, well-nourished adult male patient in no acute distress. Vital signs upon presentation are temperature 98.2F, pulse 102, respirations 18, blood pressure 144/96, pulse ox 98% on room air.) Eye exam: Present: normal appearance, PERRL, EOMI. Absent: scleral icterus, conjunctival injection, periorbital swelling ENT exam: Present: normal exam, normal oropharynx, mucous membranes moist Respiratory exam: Present: normal lung sounds bilaterally. Absent: respiratory distress, wheezes, rales, rhonchi, stridor Cardiovascular Exam: Present: regular rate, normal rhythm, normal heart sounds. Absent: systolic murmur, diastolic murmur, rubs, gallop, clicks GI/Abdominal exam: Present: soft, normal bowel sounds. Absent: distended, tenderness, guarding, rebound, rigid Neurological exam: Present: alert, oriented X3, CN II-XII intact Psychiatric exam: Present: normal affect, normal mood Skin exam: Present: warm, dry, intact, normal color. Absent: rash Course Vital Signs 07/03/19 07/03/19 18:15 20:27 Temperature 98.2 F Pulse Rate 102 H 94 Respiratory 18 18 Rate Blood Pressure 144/96 119/79 O2 Sat by Pulse 98 98 Oximetry EKG Findings - EKG Comments: EKG Findings:: EKG obtained at 1859 shows normal sinus rhythm with a ventricular rate of 95, NC interval 138, QRS duration 78, QT 334, QTC 419. No evidence of ST elevation or depression. Medical Decision Making - Medical Decision Making 38-year-old male patient presented to the emergency department today for evaluation of palpitations, headache, and chest pain. Physical examination is unremarkable. Abdomen is soft and nontender. Labs reviewed and are unremarkable. Chest x-ray shows no acute cardio pulmonary process. EKG is normal sinus rhythm with no ectopy, elevation, or depression. I did discuss findings and results with the patient. He is improving with IV fluids. He'll be discharged fall this primary care physician for recheck in 1-2 days. Return parameters were discussed in detail. He verbalizes understanding and agrees with this plan. - Lab Data Result diagrams: 07/03/19 19:05 07/03/19 19:05 Lab Results 07/03/19 07/03/19 07/03/19 Range/Units 19:05 19:05 19:05 WBC 7.5 (3.8-10.6) k/uL RBC 4.56 (4.30-5.90) m/uL Hgb 14.4 (13.0-17.5) gm/dL Hct 42.1 (39.0-53.0) % MCV 92.3 (80.0-100.0) fL MCH 31.6 (25.0-35.0) pg MCHC 34.2 (31.0-37.0) g/dL RDW 15.5 (11.5-15.5) % Plt Count 323 (150-450) k/uL Neutrophils % 60 % Lymphocytes % 28 % Monocytes % 7 % Eosinophils % 3 % Basophils % 2 % Neutrophils # 4.5 (1.3-7.7) k/uL Lymphocytes # 2.1 (1.0-4.8) k/uL Monocytes # 0.5 (0-1.0) k/uL Eosinophils # 0.2 (0-0.7) k/uL Basophils # 0.1 (0-0.2) k/uL PT 10.4 (9.0-12.0) sec INR 1.0 (<1.2) APTT 26.2 (22.0-30.0) sec D-Dimer <0.17 (<0.60) mg/L FEU Sodium 138 (137-145) mmol/L Potassium 3.8 (3.5-5.1) mmol/L Chloride 104 (98-107) mmol/L Carbon Dioxide 22 (22-30) mmol/L Anion Gap 12 mmol/L BUN 19 (9-20) mg/dL Creatinine 0.87 (0.66-1.25) mg/dL Est GFR (CKD-EPI)AfAm >90 (>60 ml/min/1.73 sqM) Est GFR (CKD-EPI)NonAf >90 (>60 ml/min/1.73 sqM) Glucose 163 H (74-99) mg/dL Calcium 10.0 (8.4-10.2) mg/dL Magnesium 2.0 (1.6-2.3) mg/dL Total Bilirubin 0.3 (0.2-1.3) mg/dL AST 37 (17-59) U/L ALT 75 H (21-72) U/L Alkaline Phosphatase 73 (38-126) U/L Troponin I (0.000-0.034) ng/mL Total Protein 7.2 (6.3-8.2) g/dL Albumin 4.6 (3.5-5.0) g/dL TSH 2.210 (0.465-4.680) mIU/L Urine Color Urine Appearance (Clear) Urine pH (5.0-8.0) Ur Specific [place] (1.001-1.035) Urine Protein (Negative) Urine Glucose (UA) (Negative) Urine Ketones (Negative) Urine Blood (Negative) Urine Nitrite (Negative) Urine Bilirubin (Negative) Urine Urobilinogen (<2.0) mg/dL Ur Leukocyte Esterase (Negative) 07/03/19 07/03/19 Range/Units 19:05 19:05 WBC (3.8-10.6) k/uL RBC (4.30-5.90) m/uL Hgb (13.0-17.5) gm/dL Hct (39.0-53.0) % MCV (80.0-100.0) fL MCH (25.0-35.0) pg MCHC (31.0-37.0) g/dL RDW (11.5-15.5) % Plt Count (150-450) k/uL Neutrophils % % Lymphocytes % % Monocytes % % Eosinophils % % Basophils % % Neutrophils # (1.3-7.7) k/uL Lymphocytes # (1.0-4.8) k/uL Monocytes # (0-1.0) k/uL Eosinophils # (0-0.7) k/uL Basophils # (0-0.2) k/uL PT (9.0-12.0) sec INR (<1.2) APTT (22.0-30.0) sec D-Dimer (<0.60) mg/L FEU Sodium (137-145) mmol/L Potassium (3.5-5.1) mmol/L Chloride (98-107) mmol/L Carbon Dioxide (22-30) mmol/L Anion Gap mmol/L BUN (9-20) mg/dL Creatinine (0.66-1.25) mg/dL Est GFR (CKD-EPI)AfAm (>60 ml/min/1.73 sqM) Est GFR (CKD-EPI)NonAf (>60 ml/min/1.73 sqM) Glucose (74-99) mg/dL Calcium (8.4-10.2) mg/dL Magnesium (1.6-2.3) mg/dL Total Bilirubin (0.2-1.3) mg/dL AST (17-59) U/L ALT (21-72) U/L Alkaline Phosphatase (38-126) U/L Troponin I <0.012 (0.000-0.034) ng/mL Total Protein (6.3-8.2) g/dL Albumin (3.5-5.0) g/dL TSH (0.465-4.680) mIU/L Urine Color Yellow Urine Appearance Clear (Clear) Urine pH 5.5 (5.0-8.0) Ur Specific [place] 1.015 (1.001-1.035) Urine Protein Negative (Negative) Urine Glucose (UA) Negative (Negative) Urine Ketones Negative (Negative) Urine Blood Negative (Negative) Urine Nitrite Negative (Negative) Urine Bilirubin Negative (Negative) Urine Urobilinogen <2.0 (<2.0) mg/dL Ur Leukocyte Esterase Negative (Negative) - Radiology Data Radiology results: report reviewed, image reviewed Two-view x-ray of the chest are obtained. Report reviewed in its entirety. Impression by Dr. Driver shows normal chest with no change. Disposition Clinical Impression: Palpitations, Dizziness, Headache, Hyperglycemia Disposition: HOME SELF-CARE Condition: Good Instructions (If sedation given, give patient instructions): Heart Palpitations (ED), Acute Headache (ED), Dizziness (ED) Additional Instructions: Increase fluids. Discussed her blood sugar with your primary care physician. Follow-up with your primary care physician for recheck in 1-2 days. Return to the emergency department immediately for any new, worsening, or concerning sy mptoms. Is patient prescribed a controlled substance at d/c from ED?: No Referrals: Herrera Calderon MD [Primary Care Provider] - 1-2 days Time of Disposition: 21:15
[2019-07-03 19:23] LABS: Basophils # (A) 0.1 k/uL (0-0.2); Basophils % (A) 2 %; Eosinophils # (A) 0.2 k/uL (0-0.7); Eosinophils % (A) 3 %; HCT 42.1 % (39.0-53.0); HGB 14.4 gm/dL (13.0-17.5); Lymphocytes # (A) 2.1 k/uL (1.0-4.8); Lymphocytes % (A) 28 %; MCH 31.6 pg (25.0-35.0); MCHC 34.2 g/dL (31.0-37.0); MCV 92.3 fL (80.0-100.0); Mean Platelet Volume 6.8; Monocytes # (A) 0.5 k/uL (0-1.0); Monocytes % (A) 7 %; Neutrophils # (A) 4.5 k/uL (1.3-7.7); Neutrophils % (A) 60 %; Platelet Count 323 k/uL (150-450); RBC 4.56 m/uL (4.30-5.90); RDW 15.5 % (11.5-15.5); WBC 7.5 k/uL (3.8-10.6)
[2019-07-03 19:25] LABS: Appearance,Urine Clear (Clear); Bilirubin,Urine Negative (Negative); Blood,Urine Negative (Negative); Color,Urine Yellow; Glucose,Urine (UA) Negative (Negative); Ketones,Urine Negative (Negative); Leukocyte Esterase,Urine Negative (Negative); Nitrite,Urine Negative (Negative); PH, Urine 5.5 (5.0-8.0); Protein,Urine Negative (Negative); Specific Gravity,Urine 1.015 (1.001-1.035); Urobilinogen,Urine <2.0 mg/dL (<2.0)
[2019-07-03 19:27] LABS: ALT 75 U/L (21-72); AST 37 U/L (17-59); African American GFR (CKD) >90 (>60 ml/min/1.73 sqM); Albumin 4.6 g/dL (3.5-5.0); Alkaline Phosphatase 73 U/L (38-126); Anion Gap 12 mmol/L; Blood Urea Nitrogen 19 mg/dL (9-20); Carbon Dioxide 22 mmol/L (22-30); Chloride 104 mmol/L (98-107); Glucose 163 mg/dL (74-99); Potassium 3.8 mmol/L (3.5-5.1); Sodium 138 mmol/L (137-145); Total Bilirubin 0.3 mg/dL (0.2-1.3); Total Protein 7.2 g/dL (6.3-8.2)
--- NOTE | 2019-07-03 19:28 | XR ---
EXAMINATION TYPE: XR chest 2V DATE OF EXAM: 07/03/2019 COMPARISON: 11/03/2018 HISTORY: Chest pain FINDINGS: Heart and mediastinum are normal. Lungs are clear. Diaphragm is normal. Bony thorax is intact but the re is neural stimulator in the lower thoracic spine. TECHNIQUE: Frontal and lateral views of the chest are obtained. IMPRESSION: Normal chest. No change.
[2019-07-03 19:36] LABS: D-Dimer <0.17 mg/L FEU (<0.60); Partial Thromboplastin Time 26.2 sec (22.0-30.0); Prothrombin Time 10.4 sec (9.0-12.0)
[2019-07-03 20:28] VITALS: BP 119/79; PULSE 94
== END 2019-07-03 21:29 | disposition home or self-care (01) ==
LOC: EC 18:01
DX: R00.2 Palpitations (principal); R73.9 Hyperglycemia, unspecified; R42 Dizziness and giddiness; R51 Headache; R07.9 Chest pain, unspecified; R11.0 Nausea; H53.8 Other visual disturbances; R06.02 Shortness of breath; R03.0 Elevated blood-pressure reading, without diagnosis of hypertension; G89.29 Other chronic pain; F17.200 Nicotine dependence, unspecified, uncomplicated; Z88.5 Allergy status to narcotic agent; Z98.1 Arthrodesis status; Z82.49 Family history of ischemic heart disease and other diseases of the circulatory system
CPT/HCPCS: 36415; 71046; 80053; 81003; 83735; 84443; 84484; 85025; 85379; 85610; 85730; 87040; 93005; 96360; 96361; 99284

== ENCOUNTER 2019-07-04 19:45 | Emergency (ER) | payer OTHER ==
[2019-07-04 20:02] VITALS: RESP 18
[2019-07-04] MEDS ORDERED: SODIUM CHLORIDE 0.9% 500 ML 500 ML IV STA (20:02)
[2019-07-04] MEDS ORDERED: SODIUM CHLORIDE 0.9% 1,000 ML IV STA (20:02)
--- NOTE | 2019-07-04 20:10 | ED ---
General Adult HPI - General Chief complaint: Recheck/Abnormal Lab/Rx Stated complaint: Tachycardiac Time Seen by Provider: 07/04/19 19:56 Source: patient, RN notes reviewed Mode of arrival: EMS Limitations: no limitations - History of Present Illness Initial comments: This is a 38-year-old male with a visit yesterday for complaints of feeling weak right-sided headache dizziness he was diagnosed with palpitations he had a blood pressure was elevated at 150/108 yesterday heart rate maxed out at 140 area he was evaluated and discharged. He is back tonight with complaints of feeling weak heart rate up to 118. The pressure 156 systolic is not feeling well. Otherwise no focal deficits no fevers chills nausea vomiting or other symptoms. - Related Data Home Medications Medication Instructions Recorded Confirmed No Known Home Medications 07/04/19 07/04/19 Allergies Allergy/AdvReac Type Severity Reaction Status Date / Time hydromorphone [From Dilaudid] AdvReac Unknown Verified 07/04/19 21:04 Review of Systems ROS Statement: Those systems with pertinent positive or pertinent negative responses have been documented in the HPI. ROS Other: All systems not noted in ROS Statement are negative. Past Medical History Past Medical History: Hypertension Additional Past Medical History / Comment(s): DDD, DJD, chronic back pain, blood born strep, staph infection after back surgery-Non MRSA History of Any Multi-Drug Resistant Organisms: None Reported Past Surgical History: Appendectomy, Back Surgery, Orthopedic Surgery Additional Past Surgical History / Comment(s): 3-lower lumbar fusion, I/s of incision in back,spinal cord stimulator Past Anesthesia/Blood Transfusion Reactions: No Reported Reaction Past Psychological History: Anxiety, Depression Smoking Status: Current every day smoker Past Alcohol Use History: Occasional Past Drug Use History: None Reported - Past Family History Mother Family Medical History: Congestive Heart Failure (CHF) Additional Family Medical History / Comment(s): hip problems. Father History Unknown: Yes General Exam - General Exam Comments Initial Comments: This is a well-developed well-nourished awake alert oriented 3 male Limitations: no limitations General appearance: alert, anxious Head exam: Present: atraumatic, normocephalic, normal inspection, other (Some tenderness palpation of the right latter-day. No pulsatile masses or lesions noted) Eye exam: Present: normal appearance, PERRL, EOMI. Absent: scleral icterus, c onjunctival injection, periorbital swelling ENT exam: Present: normal exam, mucous membranes moist Neck exam: Present: normal inspection. Absent: tenderness, meningismus, lymphadenopathy Respiratory exam: Present: normal lung sounds bilaterally. Absent: respiratory distress, wheezes, rales, rhonchi, stridor Cardiovascular Exam: Present: normal rhythm, tachycardia, normal heart sounds. Absent: systolic murmur, diastolic murmur, rubs, gallop, clicks GI/Abdominal exam: Present: soft, normal bowel sounds. Absent: distended, tenderness, guarding, rebound, rigid Extremities exam: Present: normal inspection, full ROM, normal capillary refill. Absent: tenderness, pedal edema, joint swelling, calf tenderness Back exam: Present: normal inspection Neurological exam: Present: alert, oriented X3, CN II-XII intact Psychiatric exam: Present: normal affect, normal mood Skin exam: Present: warm, dry, intact, normal color. Absent: rash Course Vital Signs 07/04/19 07/04/19 07/04/19 19:54 20:21 21:51 Temperature 98.1 F Pulse Rate 107 H 86 81 Respiratory 18 18 Rate Blood Pressure 144/104 134/93 120/83 O2 Sat by Pulse 97 98 Oximetry EKG Findings - EKG Results: EKG: interpreted by RANJEET LEE, sinus rhythm, normal axis, normal QRS, normal ST/T, no acute changes (Normal sinus rhythm of 92 WI interval 134 QRS is 78 QT since QTC 344/[address]-T wave changes) Medical Decision Making - Medical Decision Making Patient is feeling improved after IV hydration and we did have a discussion regarding this back to clinically did seem dehydrated he also has hyperglycemia there is a strong family history of diabetes he is rectal amended to follow back up with Dr. Calderon For evaluation and treatment. He is in agreement with this. - Lab Data Result diagrams: 07/04/19 20:21 07/04/19 20:21 Lab Results 07/04/19 07/04/19 07/04/19 Range/Units 20:21 20:21 20:21 WBC 7.3 (3.8-10.6) k/uL RBC 4.65 (4.30-5.90) m/uL Hgb 14.1 (13.0-17.5) gm/dL Hct 42.9 (39.0-53.0) % MCV 92.2 (80.0-100.0) fL MCH 30.4 (25.0-35.0) pg MCHC 32.9 (31.0-37.0) g/dL RDW 13.7 (11.5-15.5) % Plt Count 304 (150-450) k/uL Neutrophils % 63 % Lymphocytes % 26 % Monocytes % 5 % Eosinophils % 3 % Basophils % 2 % Neutrophils # 4.5 (1.3-7.7) k/uL Lymphocytes # 1.9 (1.0-4.8) k/uL Monocytes # 0.4 (0-1.0) k/uL Eosinophils # 0.2 (0-0.7) k/uL Basophils # 0.1 (0-0.2) k/uL PT 10.3 (9.0-12.0) sec INR 1.0 (<1.2) APTT 24.8 (22.0-30.0) sec D-Dimer <0.17 (<0.60) mg/L FEU Sodium 140 (137-145) mmol/L Potassium 3.7 (3.5-5.1) mmol/L Chloride 104 (98-107) mmol/L Carbon Dioxide 26 (22-30) mmol/L Anion Gap 10 mmol/L BUN 16 (9-20) mg/dL Creatinine 0.86 (0.66-1.25) mg/dL Est GFR (CKD-EPI)AfAm >90 (>60 ml/min/1.73 sqM) Est GFR (CKD-EPI)NonAf >90 (>60 ml/min/1.73 sqM) Glucose 175 H (74-99) mg/dL Calcium 10.1 (8.4-10.2) mg/dL Magnesium 2.0 (1.6-2.3) mg/dL Total Bilirubin 0.3 (0.2-1.3) mg/dL AST 37 (17-59) U/L ALT 68 (21-72) U/L Alkaline Phosphatase 54 (38-126) U/L Creatine Kinase 71 (55-170) U/L Troponin I (0.000-0.034) ng/mL C-Reactive Protein <5.0 (<10.0) mg/L Total Protein 7.1 (6.3-8.2) g/dL Albumin 4.6 (3.5-5.0) g/dL TSH 2.000 (0.465-4.680) mIU/L 07/04/19 Range/Units 20:21 WBC (3.8-10.6) k/uL RBC (4.30-5.90) m/uL Hgb (13.0-17.5) gm/dL Hct (39.0-53.0) % MCV (80.0-100.0) fL MCH (25.0-35.0) pg MCHC (31.0-37.0) g/dL RDW (11.5-15.5) % Plt Count (150-450) k/uL Neutrophils % % Lymphocytes % % Monocytes % % Eosinophils % % Basophils % % Neutrophils # (1.3-7.7) k/uL Lymphocytes # (1.0-4.8) k/uL Monocytes # (0-1.0) k/uL Eosinophils # (0-0.7) k/uL Basophils # (0-0.2) k/uL PT (9.0-12.0) sec INR (<1.2) APTT (22.0-30.0) sec D-Dimer (<0.60) mg/L FEU Sodium (137-145) mmol/L Potassium (3.5-5.1) mmol/L Chloride (98-107) mmol/L Carbon Dioxide (22-30) mmol/L Anion Gap mmol/L BUN (9-20) mg/dL Creatinine (0.66-1.25) mg/dL Est GFR (CKD-EPI)AfAm (>60 ml/min/1.73 sqM) Est GFR (CKD-EPI)NonAf (>60 ml/min/1.73 sqM) Glucose (74-99) mg/dL Calcium (8.4-10.2) mg/dL Magnesium (1.6-2.3) mg/dL Total Bilirubin (0.2-1.3) mg/dL AST (17-59) U/L ALT (21-72) U/L Alkaline Phosphatase (38-126) U/L Creatine Kinase (55-170) U/L Troponin I <0.012 (0.000-0.034) ng/mL C-Reactive Protein (<10.0) mg/L Total Protein (6.3-8.2) g/dL Albumin (3.5-5.0) g/dL TSH (0.465-4.680) mIU/L - Radiology Data Radiology results: report reviewed (I did review the imaging and report no acute findings.), image reviewed Disposition Clinical Impression: Dehydration, Hyperglycemia, Tachycardia Disposition: HOME SELF-CARE Condition: Good Instructions (If sedation given, give patient instructions): Nondiabetic Hyperglycemia (ED), Dehydration (ED), Tachycardia (ED) Is patient prescribed a controlled substance at d/c from ED?: No Referrals: Herrera Calderon MD [Primary Care Provider] - 1-2 days
[2019-07-04 20:33] LABS: Basophils # (A) 0.1 k/uL (0-0.2); Basophils % (A) 2 %; Eosinophils # (A) 0.2 k/uL (0-0.7); Eosinophils % (A) 3 %; HCT 42.9 % (39.0-53.0); HGB 14.1 gm/dL (13.0-17.5); Lymphocytes # (A) 1.9 k/uL (1.0-4.8); Lymphocytes % (A) 26 %; MCH 30.4 pg (25.0-35.0); MCHC 32.9 g/dL (31.0-37.0); MCV 92.2 fL (80.0-100.0); Mean Platelet Volume 6.4; Monocytes # (A) 0.4 k/uL (0-1.0); Monocytes % (A) 5 %; Neutrophils # (A) 4.5 k/uL (1.3-7.7); Neutrophils % (A) 63 %; Platelet Count 304 k/uL (150-450); RBC 4.65 m/uL (4.30-5.90); RDW 13.7 % (11.5-15.5); WBC 7.3 k/uL (3.8-10.6)
--- NOTE | 2019-07-04 20:43 | XR ---
EXAMINATION TYPE: XR chest 2V DATE OF EXAM: 07/04/2019 COMPARISON: 07/03/2019 HISTORY: Dysrhythmia TECHNIQUE: Frontal and lateral views of the chest are obtained. FINDINGS: Heart and mediastinum are normal. Lungs are clear. Diaphragm is normal. There is neural st imulator in the thoracic spine. Bony thorax is intact. IMPRESSION: Normal chest. No change.
[2019-07-04 20:45] LABS: D-Dimer <0.17 mg/L FEU (<0.60); Partial Thromboplastin Time 24.8 sec (22.0-30.0); Prothrombin Time 10.3 sec (9.0-12.0)
[2019-07-04 20:49] LABS: ALT 68 U/L (21-72); AST 37 U/L (17-59); African American GFR (CKD) >90 (>60 ml/min/1.73 sqM); Albumin 4.6 g/dL (3.5-5.0); Alkaline Phosphatase 54 U/L (38-126); Anion Gap 10 mmol/L; Blood Urea Nitrogen 16 mg/dL (9-20); Calcium 10.1 mg/dL (8.4-10.2); Carbon Dioxide 26 mmol/L (22-30); Chloride 104 mmol/L (98-107); Creatine Kinase 71 U/L (55-170); Glucose 175 mg/dL (74-99); Potassium 3.7 mmol/L (3.5-5.1); Sodium 140 mmol/L (137-145); Total Bilirubin 0.3 mg/dL (0.2-1.3); Total Protein 7.1 g/dL (6.3-8.2)
[2019-07-04 20:52] LABS: C Reactive Protein <5.0 mg/L (<10.0)
[2019-07-04 22:42] VITALS: BP 120/79; PULSE 75; TEMP 98.7
== END 2019-07-04 22:42 | disposition home or self-care (01) ==
LOC: EC 19:45
DX: E86.0 Dehydration (principal); R73.9 Hyperglycemia, unspecified; R00.0 Tachycardia, unspecified; F17.200 Nicotine dependence, unspecified, uncomplicated; Z88.5 Allergy status to narcotic agent; Z98.1 Arthrodesis status
CPT/HCPCS: 36415; 71046; 80053; 82550; 83735; 84443; 84484; 85025; 85379; 85610; 85730; 86140; 93005; 96360; 96361; 99285